=== PATIENT | male | born 1965 | race Caucasian/White ===

== ENCOUNTER 2016-11-11 18:17 | Emergency (ER) | payer OTHER ==
[~2016-11-11] VITALS: Ht 185.4 cm; Wt 154.6 kg
[2016-11-11 18:32] VITALS: BP 138/92; PULSE 94; RESP 20; O2SAT 96
--- NOTE | 2016-11-11 18:41 | ED.REPORT ---
HPI-URI / Cough / Cold Date of Service November 11, 2016 ED Provider: Dr. Delacruz Pt is a 51 year old male with a history of HTN who presents to the ED with concerns for flu-like symptoms that started 2 days ago. He reports a fever, cough and body-aches. He denies any history of asthma, CHF or any other lung conditions. He admits to smoking. Pt denies any nausea, vomiting, diarrhea, or any other symptoms. Nursing Notes Stated Complaint: POSSIBLE FLU Chief Complaint: FLU/Cold Symptoms Nursing Notes Reviewed: Yes Allergies: Coded Allergies: Penicillins (Verified Allergy, Intermediate, 11/11/16) General Time Seen by MD: 18:40 Chief Complaint Cough, non-productive, Fever Hx Obtained From: Patient Arrived By: Walk-in Onset Occurred: 3 days ago Symptom Duration: Since onset Severity: Current: Mild Severity: Maximum: Mild Similar Sx Previous: Yes Past Medical History Past Medical History Reports: Hypertension Ambulatory Status Independent Review of Systems Constitutional: Reports: Fever, Weakness - generalized, Denies: Chills, Malaise Respiratory: Reports: Non-productive cough, Shortness of breath, Wheezing GI: Denies: Abdominal pain, Diarrhea, Nausea, Vomiting Skin: Reports Diaphoresis Neurologic: Denies: Change LOC, Dizziness, Headache, Syncope Complete sys rev & neg: except as marked. Physical Exam Initial Vital Signs Vital Signs (First) Date Time Temp Pulse Resp B/P Pulse Ox O2 Delivery O2 Flow Rate FiO2 11/11/16 18:32 36.7 94 20 138/92 96 Room Air Initial VS: Reviewed Head / Eyes: Atraumatic, Normocephalic, PERRL Neck: Supple, Non-tender, Full range of motion Abdomen / GI: Soft, Non-tender, No guarding, No rebound, No distention Neurologic: Alert, Oriented, Nonfocal General/Constitutional: Awake, Alert Appearance / Presentation: Positive: Obese, Uncomfortable Diaphoretic ENT: Atraumatic, Airway patent, Mucous membranes moist, Pharynx NL Respiratory / Chest: Atraumatic Diffuse wheezing heard throughout Cardiovascular: Heart rate NL, Regular rhythm, Heart sounds NL No lower extremity edema No calf swelling or tenderness Interpretation & Diagnostics Lab Results Interpretation Result Diagram: 11/11/16194111/11/161941 Test 11/11/16 19:40 11/11/16 19:42 11/11/16 22:05 D-Dimer 0.76mg/L FEU (<0.50) White Blood Count 7.8th/mm3 (3.8-10.1) Red Blood Count 5.32mil/mm3 (4.40-5.80) Hemoglobin 16.3g/dL (13.8-17.2) Hematocrit 48.5% (41.0-50.0) Mean Corpuscular Volume 91.2fL (81-100) Mean Corpuscular Hemoglobin 30.6pg (27.0-35.0) Mean Corpuscular Hemoglobin Concent 33.6% (32.0-37.0) Red Cell Distribution Width 13.8% (12.3-15.4) Platelet Count 251bil/L (150-400) Neutrophils (%) (Auto) 60.7% (40-74) Lymphocytes (%) (Auto) 20.5% (14-46) Monocytes (%) (Auto) 12.5% (4-12) Eosinophils (%) (Auto) 4.8% (0-5) Basophils (%) (Auto) 0.9% (0-3) Sodium Level 139mEq/L (134-144) Potassium Level 4.0mEq/L (3.5-5.2) Chloride Level 103mEq/L (97-108) Carbon Dioxide Level 21mmol/L (18-29) Blood Urea Nitrogen 9mg/dL (6-24) Creatinine 0.75mg/dL (0.76-1.27) Estimat Glomerular Filtration Rate 117mL/min (>59) Glucose Level 110mg/dL (60-99) Lactic Acid Level 1.4mmol/L (0.4-2.0) Calcium Level 9.0mg/dL (8.5-10.1) Total Bilirubin 0.4mg/dL (0.0-1.2) Aspartate Amino Transf (AST/SGOT) 84U/L (0-50) Alanine Aminotransferase (ALT/SGPT) 232U/L (0-44) Alkaline Phosphatase 76U/L (25-150) Total Protein 7.4g/dL (6.4-8.4) Albumin 3.9g/dL (3.4-5.0) Procalcitonin 0.18ng/mL (0.00-0.08) Troponin T 0.010ug/L (0.0-0.011) Hold Mohamud Top Tube Received (Received) Lab Results Interpretation: Angiography CT: IMPRESSION: No pulmonary embolus. Dictated by: Katerin Merchant MD, PhD on 11/11/2016 at 21:50 ECG Interpretation ECG Interpretation: SR - 93 No STEMI No signs of ischemia Time: 19:03 Interpreted by: ED physician X-Ray Chest Interpretation Chest Xray Interpretation: IMPRESSION: No acute cardiopulmonary disease process. Dictated by: Katerin Merchant MD, PhD on 11/11/2016 at 19:25 View: Portable, 1 view Interpretation / Wet Read by: Interpret - Radiologist Re-Eval/Medical Decision Med Decision/Clinical Course Patient presents with fever, chills diaphoresis and shortness of breath. Pulmonary emboli was ruled out. Lobar pneumonia ruled out. Sepsis unlikely. I do think that he has pneumonia causing his cough with green sputum production and elevated pro calcitonin. As such she will be placed on antibiotics and close outpatient follow-up. Source of Hx: Old records Re-Evaluation/Progress #1: Time of Eval: 21:11 Re-Evaluation/Progress Note: Pt is rechecked and informed of his diagnosis and the plan to obtain a CT of his chest at this time. He understands and agrees, all questions are addressed. Re-Evaluation/Progress #2: Time of Eval: 22:52 Re-Evaluation/Progress Note: Pt is rechecked and informed of his diagnosis and the plan to discharge him at this time. He understands and agrees, all questions are addressed. Counseled Regarding: Diagnosis, Lab results, Need for follow-up, When/why to return to ED Discharge & Departure Impression: Primary Impression: Upper respiratory infection URI type: unspecified URI Qualified Code: J06.9 - Acute upper respiratory infection, unspecified Disposition: Home Discharge Condition All VS Reviewed: Yes Condition: Stable Patient Instructions: Upper Respiratory Infection (ED) Additional Instructions: The CAT scan did not show evidence of a blood clot. You did have a calcification in your liver and elevated liver enzymes. Have these followed up with your primary care physician. I suspect that you have a lung infection. Take Zithromax daily for 4 more days. Take Omnicef twice daily for 7 days. Drink plenty of liquids. Tylenol or Motrin as directed for fever fort body aches. Return if any problems or any new or worsening symptoms. Follow up with her primary care physician this week. Scribe Attestation Portions of this note were transcribed by Ely Beltran. I, Dr. Delacruz personally performed the history, physical exam and medical decision-making; I reviewed and confirmed the accuracy of the information in the transcribed note. Signed by: Yevgeniy Merida, 11/11/2016 [Time]. Nguyễn Delacruz DO November 11, 2016 18:41 BENSON BELTRAN November 11, 2016 18:48
[2016-11-11] MEDS ORDERED: 0.9% Sodium Chloride 1,000 ML IV ONE (18:50)
[2016-11-11] MEDS ORDERED: cefTRIAXone Inj 2,000 MG in Dextrose 5% Minibag Plus 50 ML IV ONE (18:50)
[2016-11-11] MEDS ORDERED: Albuterol-Ipratropium 3 mL Inhalation Solution NEB ONE (18:50)
[2016-11-11 19:22] VITALS: PULSE 89; RESP 29; O2SAT 98
--- NOTE | 2016-11-11 19:28 | DRSVH ---
PROCEDURE: X-RAY CHEST, TWO VIEWS ([id number]) INDICATIONS: fever, cough TECHNIQUE: 2 views of the chest were acquired. COMPARISON: None. FINDINGS: Surgical changes and devices: Linear metallic density projects over the left chest in the AP view an d is not identified in the lateral view resuming represents foreign body either in the skin surface o r embedded within skin and outside lungs. Lungs and pleura: No pleural effusions or pneumothorax. Lungs are clear. Mediastinum: Mediastinal contours are normal. Heart size is normal. Bones and chest wall: No suspicious bony abnormalities. Soft tissues appear unremarkable. IMPRESSION: No acute cardiopulmonary disease process. Dictated by: Katerin Merchant MD, PhD on 11/11/2016 at 19:25 Approved by: Katerin Merchant MD, PhD on 11/11/2016 at 19:27
[2016-11-11 19:56] LABS: BASOPHILS % (AUTO) 0.9 % (0-3); EOSINOPHILS % (AUTO) 4.8 % (0-5); MONOCYTES % (AUTO) 12.5 % (4-12); Mean Corpuscular Hemoglobin 30.6 pg (27.0-35.0); Mean Corpuscular Volume 91.2 fL (81-100); NEUTROPHILS % (AUTO) 60.7 % (40-74); Platelet Count 251 bil/L (150-400)
[2016-11-11 20:27] LABS: TROPONIN T < 0.010 ug/L (0.0-0.011)
[2016-11-11 20:52] VITALS: BP 143/75; PULSE 95; RESP 19; O2SAT 95
--- NOTE | 2016-11-11 21:57 | DRSVH ---
PROCEDURE: CT ANGIO CHEST PULMONARY EMBOLISM ([id number]) INDICATIONS: short of breath, diaphoretic, normal xray, TECHNIQUE: After the administration of intravenous contrast, 2 mm thick sections acquired from the pulmonary api nelson to the posterior costophrenic angles. 3-dimensional maximum intensity projection (MIP) coronal a nd sagittal reformats were then acquired through the thorax. For radiation dose reduction, the follo wing was used: automated exposure control, adjustment of mA and/or kV according to patient size. COMPARISON: [facility], , XR CHEST 2VW, 11/11/2016, 18:58. FINDINGS: Image quality: Excellent. Pulmonary arteries: Pulmonary arteries are normal in size, and demonstrate no intraluminal filling d efects to suggest central pulmonary embolism. Lungs and pleura: Atelectasis noted in the dependent portions of the lungs. No pleural effusions or pneumothorax. Central and peripheral airways are patent. Mediastinum: Heart size is normal, without pericardial effusion. No mediastinal or hilar adenopathy . Thoracic aorta is normal in caliber and enhancement. Esophagus is normal in caliber, without hiat al hernia. Bones and chest wall: No suspicious bony lesions. Ribs and thoracic spine appear intact throughout. Spine degenerative disease and facet arthropathy noted. Thyroid gland is normal where visualized. No axillary or supraclavicular adenopathy. Abdomen: Gallbladder is surgically absent. Punctate calcification is noted in the posterior-inferio r subsegment of the right lobe the liver possibly representing sequela prior granulomatous disease. IMPRESSION: No pulmonary embolus. Dictated by: Katerin Merchant MD, PhD on 11/11/2016 at 21:50 Approved by: Katerin Merchant MD, PhD on 11/11/2016 at 21:56
[2016-11-11 23:34] VITALS: BP 137/81; PULSE 97; RESP 21; O2SAT 95
[2016-11-12] MEDS ORDERED: Sodium Chloride LOK Flush 10 mL Syringe IVFLUSH SCH (00:30)
== END 2016-11-11 23:36 | disposition home or self-care (01) ==
LOC: SED 18:17
DX: J06.9 Acute upper respiratory infection, unspecified (principal); I10 Essential (primary) hypertension; F17.200 Nicotine dependence, unspecified, uncomplicated; Z88.0 Allergy status to penicillin
CPT/HCPCS: 36415; 71020; 71275; 80053; 83605; 84145; 84484; 85025; 85378; 87040; 87804; 93005; 94664; 96361; 96365; 96375; 99285; J0696; J1885; J7030; J7620; Q9967